=== PATIENT | female | born 1950 ===

== ENCOUNTER 2020-04-09 11:00 | Inpatient (IN) | payer OTHER ==
[~2020-04-09] VITALS: Ht 160 cm; Wt 81.6 kg
[2020-04-09] MEDS ORDERED: HUMULIN 70100 UNIT/2 (12:13)
[2020-04-09] MEDS ORDERED: FORTAMET1000 MG PO (12:14)
[2020-04-09] MEDS ORDERED: CYMBALTA60 MG PO (12:14)
[2020-04-09] MEDS ORDERED: TIROSINT100 MCG PO (12:15)
[2020-04-09] MEDS ORDERED: ATORVASTATIN CA20 MG PO (12:15)
[2020-04-09] MEDS ORDERED: ZESTRIL2.5 MG PO (12:16)
[2020-04-14] MEDS ORDERED: VITAMIN C1000 MG (15:11)
[2020-04-16] MEDS ORDERED: PEPCID AC20 MG PO (08:38)
[2020-04-16] MEDS ORDERED: TRAMADOL HCL50 MG PO (08:38)
[2020-04-16] MEDS ORDERED: INTESTINEX680 M1 PO (08:38)
[2020-04-16] MEDS ORDERED: HYOSCYAMINE0.125 M1 SL (08:38)
== END 2020-04-16 12:09 | disposition home or self-care (01) | DRG 331 ==
LOC: O/R 04-14 07:00 → SURG 04-14 07:00 → SURH 04-14 11:00 → SURG 04-14 12:03 → SURH 04-14 15:15 → SURG 04-16 12:09
PROVIDERS: ADMIT Surgery; ATTEND Surgery
PROC: 0DTJ4ZZ Resection of Appendix, Percutaneous Endoscopic Approach (ICD-10-PCS; 2020-04-14)
PROC: 0DBH4ZZ Excision of Cecum, Percutaneous Endoscopic Approach (ICD-10-PCS; principal; 2020-04-14 15:15)
DX: K38.8 Other specified diseases of appendix (principal); I10 Essential (primary) hypertension; E78.5 Hyperlipidemia, unspecified